=== PATIENT | female | born 1985 | race African-American/Black ===

== ENCOUNTER 2020-07-24 12:10 | Emergency (ER) | payer MEDICAID ==
[~2020-07-24] VITALS: Ht 172.7 cm; Wt 65.0 kg
[2020-07-24 12:59] LABS: BILIRUBIN,URINE NEGATIVE (NEG); CLARITY,URINE CLEAR; COLOR,URINE YELLOW; NITRITE,URINE NEGATIVE (NEG); PROTEIN,URINE NEGATIVE (NEG-TRACE)
[2020-07-24 13:31] LABS: BACTERIA,URINE MOD /HPF (0-FEW); RBC,URINE 0 /HPF (0-2); WBC,URINE OCC /HPF (0-4)
[2020-07-24 14:15] VITALS: BP 127/67
[2020-07-24] MEDS ORDERED: cefTRIAXone IM 250 MG VIAL IM ONE (14:45)
[2020-07-24] MEDS ORDERED: AZITHROMYCIN 250 MG TABLET. PO ONE (14:45)
--- NOTE | 2020-07-24 14:46 | RAD ---
PELVIS W/TV History: Reason: RT Adnexa tender to palpate; RT pelvic pain x 2 weeks / Spl. Instructions: / History: Comparison: None. Technique: Grayscale and color Doppler imaging of the pelvis was performed using transabdominal and transvaginal technique. Findings: The uterus measures 8.2 x 6.6 x 4.0 cm. Uterus has an unremarkable appearance. The endometrial stripe measures 8 mm. Right ovary measures 3.4 x 2.1 x 2.0 cm. Left ovary measures 2.6 x 2.0 x 2.6 cm. Normal Doppler flow to the ovaries. No adnexal masses are seen. IMPRESSION: 1. Unremarkable pelvic ultrasound. Electronically signed by: Jimmy Don DO (07/24/2020 2:43 PM) [place]
--- NOTE | 2020-07-24 14:58 | ED.ADGEN ---
Past Medical History Past Medical History: Asthma, Hypertension Additional Past Medical Histor: Ovarian Cysts Past Surgical History: Other Additional Past Surgical Histo: Ovarian Cyst removed in 2004 Smoking Status: Never Smoker Alcohol Use: None General Adult EDM: Chief Complaint: MULTIPLE COMPLAINTS HPI: HPI: Patient is a 35 year old female who presents to emergency room with complaints of right lower quadrant cramping and suprapubic pain for 2 weeks. She also complains of left ear pain for the last 3 days after recent flight. She denies any drainage, bleeding, or tinnitus of the right ear. She denies any fever, cough, sore throat, body aches, fatigue, nausea, vomiting, diarrhea, dysuria, increased urinary frequency, or hematuria. The patient reports that she has had increased vaginal discharge but denies any abnormal vaginal bleeding. She received a Depo shot 2 months ago and has not had a period since then. She denies any irregular vaginal odor. She currently rates her pain a 5 out of 10 and describes it as a throbbing sensation in her ear and a crampy sensation in her abdomen and pelvis. She denies any alleviating or exacerbating factors. Review of Systems: Review of Systems: Complete ROS is negative unless otherwise noted in HPI. Current Medications: Current Medications Medications (Trade) Dose Ordered Sig/Aniya Start Time Stop Time Status Last Admin Dose Admin Azithromycin (Zithromax) 1,000 mg 1X ONCE 07/24/20 14:45 07/24/20 14:49 DC 07/24/20 14:56 1,000 MG Ceftriaxone Sodium (Rocephin Im) 250 mg 1X ONCE 07/24/20 14:45 07/24/20 14:49 DC 07/24/20 14:56 250 MG Allergies: Allergies: Allergies Coded Allergies Type Severity Reaction Last Updated Verified No Known Drug Allergies 07/24/20 No Physical Exam: PE: See Above Constitutional: Well developed, well nourished, no acute distress, non-toxic appearance. HENT: Normocephalic, atraumatic, bilateral external ears normal, nose normal. Eyes: PERRLA, EOMI, conjunctiva normal, no discharge. Neck: Normal range of motion, no stridor. Cardiovascular: Heart rate regular rhythm Lungs & Thorax: Respirations even and unlabored, no retractions, no respiratory distress Pelvic Exam: Training Representative present Abdomen: Soft, no palpable mass, right adnexal tenderness to palpation External Genitalia: Normal Skin Speculum: Normal vaginal mucosa, cervix is friable with purulent cervical discharge and strawberry appearance, there is a ulceration noted at 10:00 on the cervix. Bimanual: Positive CMT Skin: Warm, dry, no erythema, no rash. Back: No CVA tenderness Extremities: No cyanosis, ROM intact, no edema. Neurologic: Alert and oriented X 3, no focal deficits noted. Psychologic: Affect normal, judgement normal, mood normal. Current Patient Data: Labs: Laboratory Tests Test 07/24/20 12:41 07/24/20 12:43 Urine Collection Type Unknown Urine Color Yellow Urine Clarity Clear Urine pH 7.0 (<5.0-8.0) Urine Specific [place] 1.020 (1.000-1.030) Urine Protein Negative mg/dL (NEG-TRACE) Urine Glucose (UA) Negative mg/dL (NEG) Urine Ketones (Stick) Negative mg/dL (NEG) Urine Blood Negative (NEG) Urine Nitrite Negative (NEG) Urine Bilirubin Negative (NEG) Urine Urobilinogen Dipstick 1.0 mg/dL (0.2 mg/dL) Urine Leukocyte Esterase Negative (NEG) Urine RBC 0 /HPF (0-2) Urine WBC Occ /HPF (0-4) Urine Squamous Epithelial Cells Mod /LPF Urine Bacteria Mod /HPF (0-FEW) Urine Mucus Slight /LPF POC Urine HCG, Qualitative Hcg negative (Negative) Microbiology 07/24/20 Wet Prep - Final, Complete Vital Signs: Vital Signs Date Time Temp Pulse Resp B/P (MAP) Pulse Ox O2 Delivery O2 Flow Rate FiO2 07/24/20 12:39 98.5 99 16 131/78 (95) 99 Room Air 98.5 EKG: EKG: [] Heart Score: Risk Factors: Risk Factors: DM, Current or recent (<one month) smoker, HTN, HLP, family history of CAD, obesity. Risk Scores: Score 0 - 3: 2.5% MACE over next 6 weeks - Discharge Home Score 4 - 6: 20.3% MACE over next 6 weeks - Admit for Clinical Observation Score 7 - 10: 72.7% MACE over next 6 weeks - Early Invasive Strategies Radiology/Procedures: Radiology/Procedures: PROCEDURE: PELVIS W/TV PELVIS W/TV History: Reason: RT Adnexa tender to palpate; RT pelvic pain x 2 weeks / Spl. Instructions: / History: Comparison: None. Technique: Grayscale and color Doppler imaging of the pelvis was performed using transabdominal and transvaginal technique. Findings: The uterus measures 8.2 x 6.6 x 4.0 cm. Uterus has an unremarkable appearance. The endometrial stripe measures 8 mm. Right ovary measures 3.4 x 2.1 x 2.0 cm. Left ovary measures 2.6 x 2.0 x 2.6 cm. Normal Doppler flow to the ovaries. No adnexal masses are seen. IMPRESSION: 1. Unremarkable pelvic ultrasound. [] Course & Med Decision Making: Course & Med Decision Making Pertinent Labs and Imaging studies reviewed. (See chart for details) Patient was treated prophylactically with 250 mg of IM Rocephin, and 1 g of PO Zithromax. Patient was instructed to avoid having intercourse until the results of gonorrhea and chlamydia testing are available, patient was notified that these results would not be available for 48 hours. If one or both of these tests is positive, patient needs to refrain from intercourse for approximately 1 week following the treatment of any current partners. Wet mount was positive for yeast, prescription written for Diflucan. Patient verbalized an understanding of home care, medications, follow-up, and return to ED instructions and was in agreement with the plan of care. Elvia Disclaimer: Elvia Disclaimer: This electronic medical record was generated, in whole or in part, using a voice recognition dictation system. Departure Departure Impression: Primary Impression: Vaginal candidiasis Additional Impression: Contact with and (suspected) exposure to infections with a predominantly sexual mode of transmission Disposition: 01 DC HOME SELF CARE/HOMELESS Condition: STABLE Referrals: NO PCP (PCP) HEIDY IRIZARRY MD Patient Instructions: Candidal Vulvovaginitis, [id number], Sexually Transmitted Disease, [id number] Additional Instructions: Fill the prescription and use as directed. Recommend that you go to your local health department for comprehensive sexually transmitted disease testing. You have been treated for a suspected gonorrhea and chlamydia. Avoid having intercourse until the results of gonorrhea and chlamydia testing are available, these results will not be available for 48 hours. If one or both of these tests is positive, you need to refrain from intercourse for approximately 1 week following the treatment of any current partners. Follow-up with Dr. Irizarry about the abnormal finding of your cervix, return to the ER if symptoms worsen. Scripts Fluconazole (DIFLUCAN) 150 Mg Tablet 1 TAB PO ONCE, #1 TAB 1 Refill may repeat in 72 hours if symptoms persist Prov: KAREN BLACK APRN 07/24/20 Problem Qualifiers KAREN BLACK APRN Jul 24, 2020 14:58
[2020-07-24] MEDS ORDERED: FLUC150T PO (15:34)
[2020-07-27 01:11] LABS: GC PROBE Negative (Negative)
== END 2020-07-24 15:46 | disposition home or self-care (01) ==
LOC: ER 12:10
DX: B37.3 Candidiasis of vulva and vagina (principal); Z20.2 Contact with and (suspected) exposure to infections with a predominantly sexual mode of transmission; H92.02 Otalgia, left ear; I10 Essential (primary) hypertension; J45.909 Unspecified asthma, uncomplicated
CPT/HCPCS: 76830; 76856; 81001; 81025; 87086; 87491; 87591; 96372; 99284; J0696; Q0111; 99283